=== PATIENT | female | born 1975 ===

== ENCOUNTER 2017-03-15 14:27 | Emergency (ER) | payer MEDICAID ==
[2017-03-15 14:28] VITALS: BMI 29.6
[2017-03-15 14:32] VITALS: BP 118/77; PULSE 97; RESP 18; TEMP 97; O2SAT 98
[2017-03-15] MEDS ORDERED: Oxycodone/Acetaminophen 5/325 mg Tab PO STA (16:22)
[2017-03-15] MEDS ORDERED: Oxycodone/Acetaminophen 5/325 mg Tab ONE (16:25)
--- NOTE | 2017-03-15 16:37 | ED PDOC ---
HPI: Female Pain Time Seen by Provider: 03/15/17 15:29 Chief Complaint (Nursing): Female Genitourinary Past Medical History Vital Signs: Last Vital Signs Temp 97 F L 03/15/17 14:30 Pulse 97 H 03/15/17 14:30 Resp 18 03/15/17 14:30 BP 118/77 03/15/17 14:30 Pulse Ox 98 03/15/17 14:30 - Medical History PMH: Arthritis, Asthma, Back Problems, Diabetes, Hypothyroidism Denies: Depression - Family History Family History: States: Unknown Family Hx - Immunization History Hx Tetanus Toxoid Vaccination: No Hx Influenza Vaccination: No Hx Pneumococcal Vaccination: No - Home Medications Home Medications: Ambulatory Orders Medication Instructions Recorded Cyclobenzaprine HCl [Flexeril] 10 mg PO TID PRN #15 tab 04/13/14 Glimepiride [amaRYL] 4 mg PO DAILY 11/25/15 MetFORMIN [glucOPHAGE] 500 mg PO BID 11/25/15 oxyCODONE/Acetaminophen [Percocet 1 ea PO Q6 PRN #12 tab 12/15/15 5/325 mg Tab] Azithromycin [Zithromax] 250 mg PO DAILY #6 tab 03/30/16 Fluticasone Nasal [Flonase] 2 spr NS DAILY #1 spr 03/30/16 Gabapentin [Neurontin] 300 mg PO BID 03/30/16 Sulfamethoxazole/Trimethoprim 1 each PO BID #20 tablet 04/12/16 [Bactrim 400-80 mg Tablet] oxyCODONE/Acetaminophen [Percocet 1 ea PO Q6H PRN #15 tab 04/12/16 5/325 mg Tab] traMADol [Ultram] 50 mg PO TID #12 tab 08/07/16 Clindamycin [Cleocin] 300 mg PO QID #40 cap 03/15/17 oxyCODONE/Acetaminophen [Percocet 1 ea PO Q6H PRN #10 tab 03/15/17 5/325 mg Tab] - Allergies Allergies/Adverse Reactions: Allergies Allergy/AdvReac Type Severity Reaction Status Date / Time ibuprofen [From Motrin] Allergy REDNESS Verified 03/30/16 10:38 latex Allergy RASH Verified 03/30/16 10:38 - ECG O2 Sat by Pulse Oximetry: 98 Disposition - Clinical Impression Clinical Impression: Hidrosadenitis - Patient ED Disposition Is Patient to be Admitted: No Counseled Patient/Family Regarding: Diagnosis, Need For Followup, Rx Given - Disposition Disposition: Routine/Home Disposition Time: 16:35 Condition: GOOD Prescriptions: Clindamycin [Cleocin] 300 mg PO QID #40 cap oxyCODONE/Acetaminophen [Percocet 5/325 mg Tab] 1 ea PO Q6H PRN #10 tab PRN Reason: Pain, Severe (8-10) Instructions: Abscess (ED)
== END 2017-03-15 16:45 | disposition home or self-care (01) ==
LOC: H.ER 14:27
DX: L73.2 Hidradenitis suppurativa (principal); E03.9 Hypothyroidism, unspecified; E11.9 Type 2 diabetes mellitus without complications; J45.909 Unspecified asthma, uncomplicated; Z79.84 Long term (current) use of oral hypoglycemic drugs